=== PATIENT | female | born 1975 | race Caucasian/White ===

== ENCOUNTER 2025-02-03 21:01 | Emergency (ER) | payer OTHER ==
[~2025-02-03] VITALS: Ht 167.6 cm; Wt 51.3 kg
[2025-02-03] MEDS ORDERED: ALBU6.7H9 IH (21:27)
[2025-02-03] MEDS ORDERED: IPRA4AER IH (21:27)
[2025-02-03] MEDS: MORPHINE SULFATE 2 MG/1 ML DISP.SYRIN IM ONE (21:43)
[2025-02-03] MEDS ORDERED: KETOROLAC TROMETHAMINE 30 MG INJ ONE (22:11)
[2025-02-03] MEDS ORDERED: ONDANSETRON ODT 4 MG TAB.RAPDIS ONE (22:11)
[2025-02-03] MEDS: KETOROLAC TROMETHAMINE 30 MG INJ IM ONE (22:17)
[2025-02-03] MEDS: ONDANSETRON ODT 4 MG TAB.RAPDIS SL ONE (22:17)
[2025-02-03 22:38] LABS: PLATELET COUNT (AUTO) 402 K/uL (179-408); RED BLOOD CELL COUNT(AUTO) 3.20 MIL/uL (3.63-4.92); RED CELL DISTRIBUTION WIDTH 13.4 % (12.3-17.7); WHITE BLOOD COUNT (AUTO) 12.4 K/uL (3.8-11.8)
[2025-02-03 22:44] LABS: CREATININE 0.7 mg/dL (0.6-1.3); SODIUM SERUM 144.0 mmol/L (136-145); UREA NITROGEN, BLOOD 16.0 mg/dL (7-18)
[2025-02-03 22:49] LABS: ASPARTATE AMINOTRANSFERASE 13.0 U/L (15-37); TOTAL PROTEIN, SERUM 6.0 g/dL (6.4-8.2)
[2025-02-03 23:02] LABS: *BILIRUBIN,URIN NEGATIVE (NEGATIVE); *BLOOD, URINE NEGATIVE (NEGATIVE); *CLARITY,URINE CLEAR (CLEAR); *COLOR,URINE YELLOW (YELLOW); *KETONES,URINE NEGATIVE (NEGATIVE); *PROTEIN,URINE NEGATIVE (NEGATIVE); *UROBILINOGEN,URINE 0.2 E.U./dl (NORMAL); LEUKOCYTE ESTERASE ,URINE NEGATIVE (NEGATIVE); NITRITE, URINE NEGATIVE (NEGATIVE); UGLUCOSE NEGATIVE (NEGATIVE)
[2025-02-03 23:03] LABS: *URINE HCG, QUAL NEGATIVE (NEGATIVE)
[2025-02-03] MEDS ORDERED: MORPHINE SULFATE 2 MG/1 ML DISP.SYRIN ONE ×2 (23:36→23:40)
[2025-02-04 03:30] VITALS: BP 118/82
[2025-02-04 04:57] VITALS: BP 121/73; O2SAT 98
== END 2025-02-04 04:40 | disposition home or self-care (01) ==
LOC: ER 21:11
DX: K40.90 Unilateral inguinal hernia, without obstruction or gangrene, not specified as recurrent (principal); J45.909 Unspecified asthma, uncomplicated; Z88.5 Allergy status to narcotic agent; Z98.890 Other specified postprocedural states; Z59.00 Homelessness unspecified
CPT/HCPCS: 99285; 80076; 80048; 81003; 84703; 85025; 36415; 74021; 96372 ×2; J1885; J2270; A4606; A4663; Q0162